=== PATIENT | male | born 1950 | race Caucasian/White ===

== ENCOUNTER 2017-10-11 10:13 | Outpatient (CLI) | payer OTHER, SELFPAY ==
[2017-10-11] VITALS (8 sets, daily range): BP systolic 108–125; BP diastolic 53–70; PULSE 15–48; RESP 10–16; O2SAT 98–100
--- NOTE | 2017-10-11 10:15 | DI.RAD.S_ITS ---
PROCEDURE: PAIN L/S MED/LAT N RFA BILAT INDICATIONS: LUMOSACRAL REGION SPONDYLOSIS FINDINGS: Fluoroscopic spot filming was performed to verify placement of spinal needles at the right L4, L5 and S1 level(s), as labeled on the films. Appropriate location(s) of the needle tip(s) was confirmed by injection of iodinated contrast. IMPRESSION: Successful needle tip localization for right L4, L5 and S1 rhizotomy. Dictated by: Chin Mcgarry M.D. on 10/11/2017 at 13:45 Approved by: Chin Mcgarry M.D. on 10/11/2017 at 13:45
[2017-10-11] MEDS: BUPIVACAINE 0.5% (PF) 30 ML VIAL 5 ML INJ (11:45)
--- NOTE | 2017-10-11 11:48 | P.PCN_ITS ---
Procedures Date/Time Date of procedure: 10/11/17 Time of procedure: 11:45 General Procedure description: PREOP DIAGNOSIS 1. RECALCITRANT FACET ARTHROPATHY, POST OP DIAGNOSIS 1. RECALCITRANT FACET ARTHROPATHY, PROCEDURES 1. RIGHT L4 AND L5 MEDIAL BRANCH RADIOFREQUENCY NEUROTOMY AND RIGHT S1 DORSAL RAMUS BRANCH RADIOFREQUENCY NEUROTOMY, SURGEON: Caleb Breen DO INDICATION: Austin is referred by Dr. Barnes for treatment of facet arthropathy. DESCRIPTION OF PROCEDURE Right L4 and L5 medial branch radiofrequency neurotomy and right S1 dorsal ramus branch radiofrequency neurotomy under fluoroscopy with conscious sedation. The patient is well known to this clinic having undergone previous facet injections with good but temporary relief. The patient has experienced appropriate, concordant relief with previous facet and median branch blocks but the patient's pain has been recalcitrant to further conservative measures. Therefore, based upon the patient's relief and persistent symptoms, the patient is considered an appropriate candidate for facet rhizotomy. All of the patient' s questions regarding the risks versus benefits of the procedure, including, but not limited to, bleeding, infection, temporary as well as lasting nerve injury, paralysis, stroke, and , as well treatment alternatives were answered to satisfaction. After obtaining informed consent, denial of pertinent drug allergies, as well as being made aware of the potential risks of bleeding, infection, spinal cord trauma, paralysis, temporary and permanent nerve damage, seizure, stroke, and possible , the patient was brought to the fluoroscopy suite and positioned prone on the fluoroscopy table. The lumbar region was prepped with Betadine and covered with a fenestrated drape in the usual sterile fashion. Appropriate monitors applied including pulse oximeter, pulse, and blood pressure for regular monitoring throughout the procedure. IV sedation was accomplished with 5mg of Versed and 50mcg titrated to patient comfort during the course of the procedure while the patient remained responsive to all verbal commands. After local infiltration using 1% lidocaine, under fluoroscopic guidance, a 10- cm RF insulated needle with a 10-mm active tip was positioned parallel to the junction of the right sacral ala and the superior articulating process where the S1 dorsal ramus resides. Needle placement was confirmed with sensory stimulation at 50 Hz, with motor stimulation of .5v on the right which produced local stimulation without radicular component. The stimulation was then increased to 1.5v with, once again, only local multifidus stimulation without radicular component. This was then followed by two discreet lesions performed at 80 degrees Celsius for 90 seconds each. The needle was then removed and the identical procedure was performed along the length of the right L5 medial branch with motor stimulation at .7v on the right. The identical procedure was once again performed along the length of the right L4 medial branch with motor stimulation of .5v on the right. The patient was then transferred to the recovery area where they were observed for an appropriate period of time after the injection. The patient reported a VAS score of 9 prior to the procedure and a post-procedure VAS of 0. Total Fluoroscopy Time: 31 seconds Total Conscious Sedation Time: 45min POST OP INSTRUCTIONS The patient was provided a Pain Log to continue to record the patient's response to the target-specific procedure prior to the patient's follow-up visit with the referring physician. Additionally, specific post-injection care instructions and a contact number to our office were provided if concerns arise regarding possible complications associated with the procedure are suspected. Caleb Breen DO Complications: none
[2017-10-11] MEDS: MIDAZOLAM 5 MG/5 ML VIAL IV (12:10)
== END 2017-10-11 17:20 | disposition home or self-care (01) ==
PROVIDERS: PCP Family Medicine; Visit Provider Physical Medicine & Rehabilitation
DX: M47.817 Spondylosis without myelopathy or radiculopathy, lumbosacral region (principal); M46.96 Unspecified inflammatory spondylopathy, lumbar region
CPT/HCPCS: 64635; J2250

== ENCOUNTER 2018-01-06 09:09 | Day surgery (SDC) | payer OTHER, SELFPAY ==
--- NOTE | 2018-01-06 | PATH_ITS ---
[facility] Accession Number: [id number] . 01 Material submitted: . RECTUM NEURONIS . 02 Diagnosis: Polyp From Rectum: Traditional serrated adenoma, apparenly excised in the plane of section (see comment). . . . COMMENT: This is a so-called advanced adenoma and although it appears to be totally excised within these sections, shortened surveillance interval is recommended. Case reviewed by Dr. Ramon Trevino who agrees with the diagnosis. MRV/01/09/2018 . 02 Electronically signed: . Guilherme Randall MD, Pathologist NPI- [id number] . 01 Gross description: . Received one formalin-filled container, labeled with the patient's name and labeled rectum neuronis, are two 0.4 to 0.6 cm portions of tissue. The smallest piece is entirely submitted. The largest piece is trisected and entirely submitted in the same cassette. (DC:mlo [id number]) /OZO . 02 Pathologist provided ICD-10: D12.8 . 02 CPT . 018045 Performed at: 01 [facility] [address] [place] [address], [place], [place] [id number] MD Christopher Mccullough MD Phone: [phone] Performed at: 02 [facility] [address] [place], [place] [id number] MD Fidel Hernandez MD Phone: [phone]
[2018-01-06 09:46] VITALS: BP 130/69; PULSE 50; RESP 15; TEMP 35.9; O2SAT 99; BMI 20.7
[2018-01-06] MEDS: SODIUM CHLORIDE 0.9% 1,000 ML 200 ML IV (10:15)
--- NOTE | 2018-01-06 10:58 | PM.HP.1 ---
History of Present Illness Date Patient Seen: 01/06/18 Time Patient Seen: 10:58 Chief complaint: egd colonoscopy [id number] Narrative: The patient is a gentleman here for an EGD and colonoscopy. Father had cancers polyps and he was advised to have repeat exam at this time by his prior examiner. He has chronic reflux in the see will have the EGD Patient History Medical History Chronic anticoagulation (Chronic) Facet arthritis, degenerative, L5-S1 level, lumbosacral spine (Chronic) Gastroesophageal reflux disease (Chronic) Sleep apnea (Chronic) Afib (Resolved) History of cardioversion (Resolved) Family & Social History Social History: household members spouse Tobacco & Substance use: Smoking Status Never smoker Meds Home Medications Medication Instructions Recorded Confirmed Type apixaban 5 mg tablet 5 mg PO BID 10/07/17 11/29/17 History betaxolol 0.25 % eye OPHTHALMIC (EYE) ml 10/07/17 11/29/17 History drops,suspension dexlansoprazole 60 mg 60 mg PO DAILY 10/07/17 11/29/17 History capsule,biphase delayed release diltiazem CD 120 mg 120 mg PO DAILY 10/07/17 11/29/17 History capsule,extended release 24 hr flecainide 100 mg tablet 100 mg PO Q12H 10/07/17 11/29/17 History gabapentin 300 mg capsule 300 mg PO TID 10/07/17 11/29/17 History latanoprost 0.005 % eye drops OPHTHALMIC (EYE) ml 10/07/17 10/07/17 History metoclopramide 10 mg tablet 10 mg PO BID tab 10/07/17 11/29/17 History ranitidine 150 mg tablet 300 mg PO BEDTIME 10/07/17 11/29/17 History tamsulosin 0.4 mg PO DAILY 01/05/18 01/05/18 History Allergies Allergy/AdvReac Type Severity Reaction Status Date / Time Sulfa (Sulfonamide Allergy Verified 11/29/17 14:16 Antibiotics) Review of Systems Review of Systems All systems reviewed & are unremarkable except as noted in HPI and below Exam Vital Signs (past 8 hours): - 01/06/18 09:46 Temperature 96.6 F L Pulse Rate 50 L Respiratory Rate 15 Blood Pressure 130/69 Pulse Oximetry 99 Oxygen Delivery Method Room Air Narrative Exam Narrative: Operative no apparent distress. Eyes are nonicteric. Lungs are clear to auscultation. Heart fairly regular rate and rhythm without murmur gallop despite his history of AFib. Abdomen is scaphoid soft nontender without mass. Assessment & Plan Plan: Assessment/Plan Narrative: Patient doing well. Will proceed to EGD and colonoscopy. I have discussed the risks of bleeding, perforation which necessitate a major operation, failure to find removal lesions of the potential tattoo with him. He appears to understand wishes to proceed.
--- NOTE | 2018-01-06 11:00 | PM.PREOP ---
Pre-operative Note Interval Note Pre-op Check: Yes History & Physical exam performed today by Physician Changes: No ASA Class (for procedural sedation): II
[2018-01-06] MEDS: LIDOCAINE 4% SOLN 50 ML 20 ML TOP (11:11)
[2018-01-06] MEDS: TETRACAINE/BENZOCAINE/BUTAMBEN (CETACAINE) BOTTLE 1 SPRAY TOP (11:12)
[2018-01-06] MEDS: fentaNYL 250 MCG/5 ML INJ IV (11:13)
[2018-01-06] MEDS: MIDAZOLAM 5 MG/5 ML VIAL IV (11:14)
[2018-01-06 11:49] VITALS: BP 119/67; PULSE 56; RESP 13; TEMP 36; O2SAT 97
--- NOTE | 2018-01-06 11:50 | P.OP.ENDO_ITS ---
Operative Date/Time/Diagnoses Date of procedure: 01/06/18 Time of procedure: 11:45 Pre-op diagnosis: Screening examination. History of gastroesophageal reflux disease Post-op diagnosis: same (Polyp just inside the anal verge which was snared. Normal upper exam.) Procedure & Clinicians Study performed: EGD. Colonoscopy with hot snare polypectomy Same procedure as scheduled: Yes Indications: Family history of colon cancer. Long history gastroesophageal reflux disease. Surgeon: Alex Jung Procedure Notes SCOAP/Timeout: Performed Procedure in detail: The patient had topical anesthetic applied to oropharynx. She was placed in left lateral decubitus position and underwent IV sedation directed by the surgeon consisting of fentanyl and Versed. A bite block was inserted and the scope was advanced through it into the esophagus. The esophagus was unremarkable. GE junction was noted at 50 cm from the incisors. His esophagus was unusually long.. The stomach insufflated well. There were no lesions seen in the body, antrum or at the incisura. The pyloric channel was [ patent]. The duodenum was unremarkable to the 4th part. The papilla was well- seated and was normal in appearance. The scope was brought back into the stomach and retroflexed. The proximal stomach[normal. There was no evidence of a hiatal hernia.]. The scope was straightened and brought out through the esophagus again. No lesions were seen. The scope was removed and the patient tolerated the procedure well. The patient was repositioned. The patient was placed in the left lateral decubitus position and underwent IV sedation directed by the surgeon consisting of fentanyl and Versed. Digital exam was[remarkable for decreased sphincter tone but no palpable masses. The prostate is flat a normal in size. No masses felt on the prostate.]. The scope was inserted and advanced through the rectum into the sigmoid, descending, transverse, and ascending colon.[No lesions were seen. I did have to apply pressure and insert a stiffener in order to reach the cecum]. The cecum was reached identified by the ileocecal valve and the appendiceal opening. The ileocecal valve was successfully cannulated. The terminal ileum was normal in appearance. The scope was gradually brought out. No polyps were found until I reached the rectum. On retroflexed view there was an obvious fairly large probably just over a cm polypoid lesion. I snared it with a hot snare in 2 pieces and it appeared to be completely removed. The scope was removed and the patient tolerated the procedure well Scope withdrawal time: 12 min Sedation minutes: 39 Findings: polyp (Rectum near anal verge) and other findings (Normal upper endoscopy) Specimen(s): other (Polyp) Complications: none Recommendations: Other recommendation (Flexible sigmoidoscopy in 6 months to evaluate the region of the rectum. Full colonoscopy in 3 years.) Follow up: as needed Disposition: PACU
[2018-01-06 11:56] VITALS: BP 116/61; PULSE 52; RESP 9; O2SAT 97
[2018-01-06 11:59] VITALS: BP 105/59; PULSE 56; RESP 11; O2SAT 96
[2018-01-06 12:31] VITALS: BP 100/60; PULSE 46; RESP 16; TEMP 36.4; O2SAT 99
== END 2018-01-06 12:45 | disposition home or self-care (01) ==
PROVIDERS: PCP Family Medicine; Referring Provider Family Medicine; Visit Provider Specialist
PROC: 0DJ08ZZ Inspection of Upper Intestinal Tract, Via Natural or Artificial Opening Endoscopic (ICD-10-PCS; CPT 43235; principal; 2018-01-06 10:45)
PROC: 0DJD8ZZ Inspection of Lower Intestinal Tract, Via Natural or Artificial Opening Endoscopic (ICD-10-PCS; CPT 45378; 2018-01-06 10:45)
DX: Z12.11 Encounter for screening for malignant neoplasm of colon (principal); K21.9 Gastro-esophageal reflux disease without esophagitis; Z80.0 Family history of malignant neoplasm of digestive organs; D12.8 Benign neoplasm of rectum; Z79.01 Long term (current) use of anticoagulants; I48.91 Unspecified atrial fibrillation; G47.33 Obstructive sleep apnea (adult) (pediatric)
CPT/HCPCS: 45385; 43235; 99152; 99153; J2250; J3010

== ENCOUNTER → 2018-03-20 13:57 | Outpatient (CLI) | payer OTHER, SELFPAY ==
--- NOTE | 2018-03-20 | DI.MRI.S_ITS ---
PROCEDURE: MR PELVIS WO CON INDICATIONS: SCIATICA OF RIGHT SIDE TECHNIQUE: Noncontrast axial and coronal T1 spin echo and STIR through the lumbosacral plexus region. Optional contrast may be given, followed by axial and coronal T1 spin echo with fat saturation through the sacral plexus. COMPARISON: [facility], MR, MR LUMBAR SPINE WO CON, 03/20/2018, 14:18. FINDINGS: Image quality: Excellent. Lumbosacral plexus: Superior to the piriformis muscles, the pre-plexal structures appear normal, including the lumbosacral trunk and S1 root. Just anterior to the piriformis muscles, the sacral plexus proper demonstrates normal morphology (lumbosacral trunk, S1 to S3 nerve roots). Inferior to the piriformis muscles, the sciatic nerves appear normal. Soft tissues: The piriformis muscles appear symmetric in size. No presacral masses. Rectum appears normal in caliber and wall thickness. No pathologic free pelvic fluid. No visualized adenopathy by size criteria. There is minimal bilaterally symmetric appearing hip abductor insertional tendinopathy. There is mild T2 hyperintensity within the right inferior paraspinal musculature image 15 series 6. Bones: Marrow is normal in overall signal. IMPRESSION: Grossly unremarkable examination as above. Minimal edema in the inferior most right paraspinal musculature. No asymmetric muscle atrophy. Dictated by: Andre Silva M.D. on 03/20/2018 at 16:49 Approved by: Andre Silva M.D. on 03/20/2018 at 16:55
--- NOTE | 2018-03-20 | DI.MRI.S_ITS ---
PROCEDURE: MR LUMBAR SPINE WO CON INDICATIONS: LOW BACK PAIN TECHNIQUE: Noncontrast sagittal T1 spin echo and T2 fast echo, sagittal STIR, axial T1 and T2 fast spin echo through the lumbar spine. In cases with scoliosis, additional coronal T2 fast spin echo may be performed. COMPARISON: [facility], MR, L-SPINE WITHOUT CONTRAST, 03/21/2017, 14:15. FINDINGS: Image quality: Excellent. Alignment and Curvature: There is normal bony alignment. Bone Marrow: Marrow is of normal overall signal. No acute vertebral body compression fractures. Spinal Cord: Conus medullaris terminates at the T12-L1 level. Visualized cord demonstrates normal signal and size. Paraspinous Soft Tissues: No paravertebral masses. Bilateral small parapelvic cysts as before. Partially visualized prolapse is seen at the level of S2. L1-L2: Normal appearance. L2-L3: Normal appearance. L3-L4: Mild partial effacement of the lateral recesses, however this appears symmetric. No such canal stenosis. Bilateral facet arthropathy. No foraminal narrowing.. L4-L5: Bilateral symmetric effacement of the lateral recesses. Facet arthropathy is seen. There is mild broad-based posterior disc bulge. No foraminal stenoses L5-S1: No canal stenosis. Bilateral facet arthropathy. Minimal partial effacement of the lateral recesses although appears symmetric. IMPRESSION: No definite interval change since 03/21/17. Diffuse bilateral subarticular narrowing, most pronounced at L4-L5 (symmetric), however probably unchanged since 03/21/17. No canal or foraminal stenosis. Dictated by: Andre Silva M.D. on 03/20/2018 at 16:40 Approved by: Andre Silva M.D. on 03/20/2018 at 16:47
== END ==
PROVIDERS: PCP Physical Medicine & Rehabilitation; Visit Provider Family Medicine
DX: M54.5 Low back pain (principal); M51.16 Intervertebral disc disorders with radiculopathy, lumbar region; M47.26 Other spondylosis with radiculopathy, lumbar region
CPT/HCPCS: 72148; 72195

== ENCOUNTER 2018-08-11 10:41 | Day surgery (SDC) | payer OTHER, SELFPAY ==
[2018-08-11] VITALS (7 sets, daily range): BP systolic 104–131; BP diastolic 54–68; PULSE 45–50; RESP 12–16; TEMP 36–36.6; O2SAT 95–100; BMI 21.0
--- NOTE | 2018-08-11 | PATH_ITS ---
[facility] Accession Number: [id number] . 01 Material submitted: . anus - BIOPSY OF ANAL VERGE . 01 Clinical history: . BIOPSY OF ANAL VERGE X2 . 02 Diagnosis: Anal Verge, Biopsy: Squamous mucosa with no diagnostic abnormality. Negative for active inflammation, dysplasia or malignancy. V/08/14/2018 . 02 Electronically signed: . Ramon Trevino MD, PhD, Pathologist NPI- [id number] . 01 Gross description: . BIOPSY OF ANAL VERGE: Received in formalin 3 fragment(s) of felipe, soft tissue measuring 0.1 x 0.1 x 0.1 cm to 0.2 x 0.1 x 0.1 cm which is entirely submitted and submitted entirely in 1 cassette(s) /DMC /DMC . 02 Pathologist provided ICD-10: R19.4 . 02 CPT . 842369 Performed at: 01 [facility] [address] [facility], [place], [place] [id number] MD Christopher Mccullough MD Phone: [phone] Performed at: 02 [facility] [address] [place], [place] [id number] MD Michelle Godoy MD Phone: [phone]
--- NOTE | 2018-08-11 11:25 | PM.HP.1 ---
History of Present Illness Date Patient Seen: 08/11/18 Time Patient Seen: 11:25 Chief complaint: [id number] Narrative: Patient is a gentleman who had a serrated adenoma removed at his anal verge. He is brought back to make sure there has been complete removal and no regrowth of any lesion in that spot. Patient History Medical History Chronic anticoagulation (Chronic) Facet arthritis, degenerative, L5-S1 level, lumbosacral spine (Chronic) Gastroesophageal reflux disease (Chronic) Sleep apnea (Chronic) Afib (Resolved) History of cardioversion (Resolved) Family History Mother Gallstones Cancer Father Diabetes mellitus Cancer Social History marital status: household members: spouse occupational status: employed Smoking Status: Never smoker Family & Social History Family History Mother Gallstones Cancer Father Diabetes mellitus Cancer Social History: household members spouse Tobacco & Substance use: Smoking Status Never smoker Meds Home Medications Medication Instructions Recorded Confirmed Type betaxolol 0.25 % eye 0.25 drp/day EYE-RIGHT DAILY ml 10/07/17 08/11/18 History drops,suspension diltiazem CD 120 mg 120 mg PO DAILY 10/07/17 08/11/18 History capsule,extended release 24 hr flecainide 100 mg tablet 100 mg PO Q12H 10/07/17 08/11/18 History latanoprost 0.005 % eye drops 0.005 drp OPHTHALMIC (EYE) DAILY 10/07/17 08/11/18 History ml ranitidine 150 mg tablet 300 mg PO BEDTIME 10/07/17 08/11/18 History tamsulosin 0.4 mg PO DAILY 01/05/18 08/11/18 History Allergies Allergy/AdvReac Type Severity Reaction Status Date / Time Sulfa (Sulfonamide Allergy Verified 08/11/18 11:25 Antibiotics) Review of Systems Review of Systems All systems reviewed & are unremarkable except as noted in HPI and below Exam Vital Signs (past 8 hours): - 08/11/18 10:59 Temperature 97.6 F Pulse Rate 45 L Respiratory Rate 16 Blood Pressure 131/67 Pulse Oximetry 100 Oxygen Delivery Method Room Air Narrative Exam Narrative: Operative no apparent distress. Lungs are clear. Heart regular rate and rhythm without murmur gallop. Abdomen is soft nontender without mass. Alert oriented x3. Assessment & Plan Assessment & Plan narrative: Patient for a flex sig to ensure completely removal and no regrowth of the lesion at the anal verge. I have discussed the procedure with him. Risks of bleeding perforation discuss. He appears to understand wishes to proceed.
[2018-08-11] MEDS: SODIUM CHLORIDE 0.9% 1,000 ML 200 ML IV (11:33)
--- NOTE | 2018-08-11 11:35 | PM.PREOP ---
Pre-operative Note Interval Note History & Physical reviewed/Exam performed by Physician: Yes Changes to H&P: No ASA Class (for procedural sedation): II
[2018-08-11] MEDS: fentaNYL 250 MCG/5 ML INJ IV (11:42)
[2018-08-11] MEDS: MIDAZOLAM 5 MG/5 ML VIAL IV (11:43)
--- NOTE | 2018-08-11 11:46 | P.OP.ENDO_ITS ---
Operative Date/Time/Diagnoses Date of procedure: 08/11/18 Time of procedure: 11:42 Pre-op diagnosis: History of serrated adenoma at the anus Post-op diagnosis: same Procedure & Clinicians Study performed: Flex sig with cold biopsy Same procedure as scheduled: Yes Indications: Serrated adenoma at the anus. Scoping performed to ensure no regr owth and complete removal. Surgeon: Alex Jung Procedure Notes SCOAP/Timeout: Performed Procedure in detail: Patient is placed in left lateral decubitus position lightly sedated. Digital exam was unremarkable except his prostate is enlarged. Scope was inserted very slowly initially so I could get a good look at his anal verge looking forward. No lesions were seen. The scope was advanced to 20 cm and then brought back into the rectum and retroflexed. On retroflexed view there was 1 tiny area that could have represented up polyps which I biopsied and removed. There was also 1 irregular scar that I biopsied. Other scarring was seen on hemorrhoids but these did not appear to be neoplastic. The scope was then removed and the patient tolerated the procedure well. Scope withdrawal time: Not applicable Sedation minutes: 7 Findings: other findings (Scarring of the anus. Enlarged prostate.) Specimen(s): other (Biopsy the anal verge sent.) Complications: none Recommendations: Colonscopy in 3 years Plan for aftercare: Follow-up by phone/letter Disposition: PACU
--- NOTE | 2018-08-11 13:38 | SUR.PHASEII ---
late entry: stable phase 2 dressed when ready and left in stable condition.
== END 2018-08-11 12:55 | disposition home or self-care (01) ==
PROVIDERS: PCP Family Medicine; Visit Provider Specialist
PROC: 0DJD8ZZ Inspection of Lower Intestinal Tract, Via Natural or Artificial Opening Endoscopic (ICD-10-PCS; CPT 45378; principal; 2018-08-11 11:45)
DX: Z86.010 Personal history of colon polyps (principal); N40.0 Benign prostatic hyperplasia without lower urinary tract symptoms; Z79.01 Long term (current) use of anticoagulants; G47.33 Obstructive sleep apnea (adult) (pediatric)
CPT/HCPCS: 45380; 99152; J2250; J3010

== ENCOUNTER 2019-02-13 11:51 | Outpatient (CLI) | payer OTHER, SELFPAY ==
--- NOTE | 2019-02-13 11:52 | DI.RAD.S_ITS ---
PROCEDURE: PAIN L INTERLAMINAR/CAUDAL INJ INDICATIONS: SPONDYLOSIS FINDINGS: Fluoroscopic spot filming was performed to verify placement of spinal needles at the L5-S1 left-sided interlaminar notch level(s), as labeled on the films. Appropriate location(s) of the needle tip(s) was confirmed by injection of iodinated contrast. IMPRESSION: Successful needle tip localization through the left L5-S1 interlaminar notch for epidural steroid injection. Dictated by: Chin Mcgarry M.D. on 02/13/2019 at 13:47 Approved by: Chin Mcgarry M.D. on 02/13/2019 at 13:48
[2019-02-13 12:05] VITALS: BP 132/70; PULSE 42; RESP 18; TEMP 36; O2SAT 99
[2019-02-13 12:35] VITALS: BP 141/72; PULSE 47; RESP 16; O2SAT 100
--- NOTE | 2019-02-13 12:36 | PC.NURSE ---
NO SEDATION MEDS GIVEN PER PT REQUEST
[2019-02-13 12:40] VITALS: BP 139/69; PULSE 51; RESP 16; O2SAT 100
[2019-02-13] MEDS: DEXAMETHASONE 10 MG/ML VIAL 20 MG INJ (12:43)
[2019-02-13] MEDS: BETAMETHASONE 30 MG/5 ML MDV 6 MG INJ (12:43)
[2019-02-13] MEDS: IOPAMIDOL 15 ML VIAL 3 ML INJ (12:43)
[2019-02-13] MEDS: BUPIVACAINE 0.5% (PF) VIAL 2 ML INJ (12:43)
--- NOTE | 2019-02-13 12:45 | PC.NURSE ---
NO SEDATION MEDS GIVEN. ASSISTING PT OFF TABLE AND TRANSPORTING TO POST PROC AREA IN STABLE CONDITION.
--- NOTE | 2019-02-13 12:50 | PM.PROC.1 ---
Procedures Date/Time Date of procedure: 02/13/19 Time of procedure: 12:50 General Procedure description: PROVIDER: Caleb Breen DO Operative Note PREOP DIAGNOSIS 1. HNP WITH RADICULAR FEATURES, 2. MULTILEVEL CENTRAL STENOSIS, POST OP DIAGNOSIS 1. HNP WITH RADICULAR FEATURES, 2. MULTILEVEL CENTRAL STENOSIS, PROCEDURES 1. FLUORSCOPICALLY GUIDED CONTRAST CONTROLLED INTERLAMINAR EPIDURAL STEROID INJECTION - L5/S1 PHYSICIAN: Caleb Breen DO INDICATIONS Austin is referred by Dr. Salinas for treatment of Bilateral Foraminal Stenosis L>R LE symptoms. FINDINGS Multilevel Central Spinal Stenosis with Nerve Root Compression DESCRIPTION OF PROCEDURE Fluoroscopically guided, contrast-controlled L5/S1 translaminar epidural steroid injection. Following review of allergy and review of potential side effects and complications, including, but not necessarily limited to, infection, allergic reaction, local tissue breakdown, temporary as well as permanent nerve injury, paralysis, stroke and possible , the patient indicated that the patient understood and agreed to proceed. An informed consent document was signed by the patient, witnessed by a nurse, and placed in the patient's chart. Additionally, other treatment options including modalities, medications, and physical therapy were reviewed with the patient. After review of previous anaesthesic history and IV conscious sedation the patient was deemed safe to proceed with todays procedure with IV conscious sedation as ASA class II designation. Safety time-out was performed to confirm patient ID, procedure to be performed and site of procedure. IV sedation was deemed unnecessary and thus not administered by the RN after DO order while the patient remained responsive to all verbal commands. In the prone position, following sterile prep and drape of the lumbar region, the L5/S1 translaminar space was identified fluoroscopically. The skin was anesthetized via a 25-gauge, 1.5-inch needle with 1% lidocaine solution. At this point, a 22-gauge short bevel spinal needle was atraumatically introduced and advanced under fluoroscopic guidance into the region of the L5/S1 translaminar space. Depth was confirmed on lateral view. Radiological data, including multiple fluoroscopic views of the lumbar spine, reveal a spinal needle at the L5/S1 translaminar space. Lateral views then show placement of the needle in the epidural space. Subsequent views show contrast material flowing superiorly and inferiorly in the epidural space. No vascular or intrathecal uptake is observed. At this point, using loss of resistance technique with saline and air, the epidural space was entered. This was confirmed following negative aspiration with injection of approximately 1.5 cc of Isovue 200, showing excellent epidural flow without vascular or intrathecal uptake. At this point, 1 cc of 1% lidocaine solution combined with 3cc or 20mg of dexamethasone and 6mg of betamethasone was injected without incident. The patent tolerated the procedure without signs of symptoms of complications prior to transfer to the recovery area for further monitoring. The patient was then transferred to the recovery area where they were observed for an appropriate period of time after the injection. The patient reported a VAS score of 6 prior to the procedure and a post-procedure VAS of 0. Total Fluoroscopy Time: 11.8 seconds Total Conscious Sedation Time: 24min POST OP INSTRUCTIONS The patient was provided a Pain Log to continue to record their response to the target-specific procedure prior to follow-up visit with their referring physician. Additionally, specific post-injection care instructions and a contact number to our office were provided if concerns arise regarding possible complications associated with the procedure are suspected. Caleb Breen DO
[2019-02-13 12:56] VITALS: BP 137/78; PULSE 55; RESP 16; O2SAT 100
== END 2019-02-13 13:08 | disposition home or self-care (01) ==
LOC: RAD 11:52
PROVIDERS: PCP Family Medicine; Visit Provider Physical Medicine & Rehabilitation
DX: M51.17 Intervertebral disc disorders with radiculopathy, lumbosacral region (principal); M48.07 Spinal stenosis, lumbosacral region
CPT/HCPCS: 62323; J0702; J1100; J2250; J3010

== ENCOUNTER 2019-07-17 10:24 | Outpatient (CLI) | payer OTHER, SELFPAY ==
--- NOTE | 2019-07-17 10:25 | DI.RAD.S_ITS ---
PROCEDURE: PAIN L INTERLAMINAR/CAUDAL INJ INDICATIONS: SPINAL STENOSIS FINDINGS: Fluoroscopic spot filming was performed to verify placement of spinal needles at the L5-S1 interlaminar level(s), as labeled on the films. Appropriate location(s) of the needle tip(s) was confirmed by injection of iodinated contrast. IMPRESSION: Successful paramedian interlaminar space L5-S1 needle tip localization for epidural steroid injection. Dictated by: Chin Mcgarry M.D. on 07/17/2019 at 12:37 Approved by: Chin Mcgarry M.D. on 07/17/2019 at 12:38
[2019-07-17 11:41] VITALS: BP 141/62; PULSE 52; RESP 16; O2SAT 99
[2019-07-17 11:46] VITALS: BP 141/62; PULSE 57; RESP 16; O2SAT 99
[2019-07-17 11:51] VITALS: BP 145/65; PULSE 57; RESP 16; O2SAT 99
[2019-07-17] MEDS: BETAMETHASONE 30 MG/5 ML MDV 6 MG INJ (11:51)
[2019-07-17] MEDS: DEXAMETHASONE 10 MG/ML VIAL 20 MG INJ (11:51)
[2019-07-17] MEDS: IOPAMIDOL 15 ML VIAL 3 ML INJ (11:51)
[2019-07-17] MEDS: BUPIVACAINE 0.25% (PF) VIAL 2 ML INJ (11:51)
--- NOTE | 2019-07-17 11:53 | PC.NURSE ---
NO SEDATION MEDS GIVEN DURING PROCEDURE. ASSISTING PT OFF TABLE AND TRANSPORTING TO POST PROC AREA IN STABLE CONDITION. PASSING RN CARE OF PT OFF TO JENNIFER COBB.
--- NOTE | 2019-07-17 11:58 | P.PCN_ITS ---
Procedures Date/Time Date of procedure: 07/17/19 Time of procedure: 11:58 General Procedure description: PROVIDER: Caleb Breen DO Operative Note PREOP DIAGNOSIS 1. HNP WITH RADICULAR FEATURES, 2. MULTILEVEL CENTRAL STENOSIS, POST OP DIAGNOSIS 1. HNP WITH RADICULAR FEATURES, 2. MULTILEVEL CENTRAL STENOSIS, PROCEDURES 1. FLUORSCOPICALLY GUIDED CONTRAST CONTROLLED INTERLAMINAR EPIDURAL STEROID INJECTION - L5/S1 PHYSICIAN: Caleb Breen DO INDICATIONS Austin is referred by Dr. Salinas for treatment of Bilateral Foraminal Stenosis L>R LE symptoms. FINDINGS Multilevel Central Spinal Stenosis with Nerve Root Compression DESCRIPTION OF PROCEDURE Fluoroscopically guided, contrast-controlled L5/S1 translaminar epidural steroid injection. Following review of allergy and review of potential side effects and complications, including, but not necessarily limited to, infection, allergic reaction, local tissue breakdown, temporary as well as permanent nerve injury, paralysis, stroke and possible , the patient indicated that the patient understood and agreed to proceed. An informed consent document was signed by the patient, witnessed by a nurse, and placed in the patient's chart. Additionally, other treatment options including modalities, medications, and physical therapy were reviewed with the patient. After review of previous anaesthesic history and IV conscious sedation the patient was deemed safe to proceed with todays procedure with IV conscious sedation as ASA class II designation. Safety time-out was performed to confirm patient ID, procedure to be performed and site of procedure. IV sedation was deemed unnecessary and thus not administered by the RN after DO order, titrated to patient comfort during the course of the procedure while the patient remained responsive to all verbal commands. In the prone position, following sterile prep and drape of the lumbar region, the L5/S1 translaminar space was identified fluoroscopically. The skin was anesthetized via a 25-gauge, 1.5-inch needle with 1% lidocaine solution. At this point, a 22-gauge short bevel spinal needle was atraumatically introduced and advanced under fluoroscopic guidance into the region of the L5/S1 translaminar space. Depth was confirmed on lateral view. Radiological data, including multiple fluoroscopic views of the lumbar spine, reveal a spinal needle at the L5/S1 translaminar space. Lateral views then show placement of the needle in the epidural space. Subsequent views show contrast material flowing superiorly and inferiorly in the epidural space. No vascular or intrathecal uptake is observed. At this point, using loss of resistance technique with saline and air, the epidural space was entered. This was confirmed following negative aspiration with injection of approximately 1.5 cc of Isovue 200, showing excellent epidural flow without vascular or intrathecal uptake. At this point, 1 cc of 1% lidocaine solution combined with 3cc or 20mg of dexamethasone and 6mg of betamethasone was injected without incident. The patent tolerated the procedure without signs of symptoms of complications prior to transfer to the recovery area for further monitoring. The patient was then transferred to the recovery area where they were observed for an appropriate period of time after the injection. The patient reported a VAS score of 6 prior to the procedure and a post-procedure VAS of 0. Total Fluoroscopy Time: 5seconds Total Conscious Sedation Time: 24min POST OP INSTRUCTIONS The patient was provided a Pain Log to continue to record their response to the target-specific procedure prior to follow-up visit with their referring physician. Additionally, specific post-injection care instructions and a contact number to our office were provided if concerns arise regarding possible complica tions associated with the procedure are suspected. Caleb Breen DO Complications: none
--- NOTE | 2019-07-17 12:09 | PC.NURSE ---
Pt arrived returned to post proc room via . No medications were provided for procedure. Pt transferred from wc to chair without assistance. Resumed care and monitoring from JENNIFER Wallace
== END 2019-07-17 12:12 | disposition home or self-care (01) ==
LOC: RAD 10:25
PROVIDERS: PCP Family Medicine; Referring Provider Physical Medicine & Rehabilitation; Visit Provider Physical Medicine & Rehabilitation
DX: M51.17 Intervertebral disc disorders with radiculopathy, lumbosacral region (principal); M48.07 Spinal stenosis, lumbosacral region
CPT/HCPCS: 62323; J0702; J1100; J2250; J3010

== ENCOUNTER → 2020-08-06 11:54 | Outpatient (CLI) | payer OTHER, SELFPAY ==
[2020-08-06 23:34] LABS: BUN Creatinine Ratio 20.2 (6-22); Blood Urea Nitrogen 22 mg/dL (9-20); Calcium 9.4 mg/dL (8.4-10.2); Carbon Dioxide 32 mmol/L (22-32); Chloride 102 mmol/L (98-107); Estimated Glomerular Filt Rate > 60.0 mL/min (>60); Glucose 79 mg/dL (80-110); HEMOLYSIS 20 (0-50); Potassium 4.6 mmol/L (3.4-5.1); Sodium 140 mmol/L (137-145)
== END ==
PROVIDERS: PCP Family Medicine; Visit Provider Internal Medicine Cardiovascular Disease
DX: I48.91 Unspecified atrial fibrillation (principal)
CPT/HCPCS: 80048

== ENCOUNTER → 2020-08-20 13:45 | Outpatient (CLI) | payer OTHER, SELFPAY ==
[2020-08-20 20:23] LABS: COVID19 - ORCAS (NP or Nasal) Negative (Negative)
== END ==
PROVIDERS: PCP Family Medicine; Visit Provider Physician Assistant Medical
DX: Z20.822 Contact with and (suspected) exposure to COVID-19 (principal)
CPT/HCPCS: U0003

== ENCOUNTER → 2020-10-06 11:07 | Outpatient (CLI) | payer OTHER, SELFPAY ==
[2020-10-06 20:45] LABS: Add Manual Diff / Slide Review NO; Basophils Absolute Auto 0 /uL (0-100); Basophils Percent Auto 0.4 % (0-2); Eosinophils Absolute Auto 0 /uL (0-450); Eosinophils Percent Auto 0.8 % (2-4); Hematocrit 43.8 % (41-53); Hemoglobin 15.1 g/dL (13.5-17.5); Lymphocytes Absolute Auto 1300 /uL (1100-4500); Lymphocytes Percent Auto 21.1 % (25-40); Mean Corpuscular HGB Conc 34.5 % (30-36); Mean Corpuscular Hemoglobin 32.2 PG (26-34); Mean Corpuscular Volume 93.3 fL (80-100); Monocytes Absolute Auto 500 /uL (0-900); Monocytes Percent Auto 8.7 % (3-14); Neutrophils Absolute Auto 4300 /uL (1500-7000); Platelet Count 149 X10^3/uL (150-400); Red Blood Cell Count 4.69 X10^6/uL (4.5-5.9); Red Cell Distribution Width 13.4 % (11.6-14.8); White Blood Cell Count 6.3 X10^3/uL (4.5-11.0)
[2020-10-06 22:14] LABS: Alanine Aminotransferase 32 IU/L (<50); Albumin 4.3 g/dL (3.5-5.0); Albumin Globulin Ratio 1.9 (1.0-2.8); Alkaline Phosphatase 69 U/L (38-126); Aspartate Aminotransferase 30 IU/L (17-59); BUN Creatinine Ratio 19.1 (6-22); Bilirubin Total 0.8 mg/dL (0.2-1.3); Blood Urea Nitrogen 21 mg/dL (9-20); Calcium 9.4 mg/dL (8.4-10.2); Carbon Dioxide 28 mmol/L (22-32); Chloride 102 mmol/L (98-107); Cholesterol 162 mg/dL (140-199); Estimated Glomerular Filt Rate > 60.0 mL/min (>60); Globulin 2.3 g/dL (1.7-4.1); Glucose 97 mg/dL (80-110); HDL Cholesterol 56 mg/dL (40-60); HEMOLYSIS < 15 (0-50); LDL Cholesterol Calculated 91 mg/dL (<100); Potassium 4.5 mmol/L (3.4-5.1); Sodium 138 mmol/L (137-145); Total Protein 6.6 g/dL (6.3-8.2); Triglycerides 77 mg/dL (35-150)
[2020-10-06 22:42] LABS: Prostate Specific Antigen Scrn 0.902 ng/mL (0.1-4.0)
[2020-10-08 06:27] LABS: Cancer (Carbohydrate) Ag 19-9 15 U/mL (0-35)
== END ==
PROVIDERS: PCP Family Medicine; Visit Provider Family Medicine
DX: I48.92 Unspecified atrial flutter (principal); K21.9 Gastro-esophageal reflux disease without esophagitis; Z12.5 Encounter for screening for malignant neoplasm of prostate
CPT/HCPCS: 80053; 80061; 84443; 85025; 86301; G0103

== ENCOUNTER → 2020-12-30 10:56 | Outpatient (CLI) | payer OTHER, SELFPAY | PROVIDERS: PCP Family Medicine; Visit Provider Family Medicine | DX: Z00.00 Encounter for general adult medical examination without abnormal findings (principal) | CPT/HCPCS: 82306 ==

== ENCOUNTER → 2021-02-06 07:43 | Outpatient (CLI) | payer OTHER, SELFPAY ==
[2021-02-06 23:16] LABS: COVID19 - ORCAS (NP or Nasal) Negative (Negative)
== END ==
PROVIDERS: PCP Family Medicine; Visit Provider Family Medicine
DX: Z20.822 Contact with and (suspected) exposure to COVID-19 (principal)
CPT/HCPCS: U0003

== ENCOUNTER → 2021-05-05 10:50 | Outpatient (CLI) | payer OTHER, SELFPAY ==
[2021-05-05 19:19] LABS: Add Manual Diff / Slide Review NO; Basophils Absolute Auto 0 /uL (0-100); Basophils Percent Auto 0.4 % (0-2); Eosinophils Absolute Auto 200 /uL (0-450); Eosinophils Percent Auto 4.2 % (2-4); Hematocrit 42.6 % (41-53); Hemoglobin 14.9 g/dL (13.5-17.5); Lymphocytes Absolute Auto 1600 /uL (1100-4500); Lymphocytes Percent Auto 27.9 % (25-40); Mean Corpuscular Hemoglobin 32.2 PG (26-34); Mean Corpuscular Volume 91.8 fL (80-100); Monocytes Absolute Auto 500 /uL (0-900); Monocytes Percent Auto 9.3 % (3-14); Neutrophils Absolute Auto 3400 /uL (1500-7000); Neutrophils Percent Auto 58.2 % (50-75); Platelet Count 141 X10^3/uL (150-400); Red Blood Cell Count 4.64 X10^6/uL (4.5-5.9); White Blood Cell Count 5.8 X10^3/uL (4.5-11.0)
[2021-05-05 19:29] LABS: Alanine Aminotransferase 22 IU/L (<50); Albumin 4.1 g/dL (3.5-5.0); Albumin Globulin Ratio 1.9 (1.0-2.8); Alkaline Phosphatase 48 U/L (38-126); Aspartate Aminotransferase 29 IU/L (17-59); Bilirubin Total 0.8 mg/dL (0.2-1.3); Bilirubin Unconjugated 0.8 mg/dL (0.0-1.1); Globulin 2.2 g/dL (1.7-4.1); HEMOLYSIS 21 (0-50); Total Protein 6.3 g/dL (6.3-8.2)
[2021-05-05 19:43] LABS: Vitamin D 25 Hydroxy (D3) 40.4 ng/mL (30.0-100.0)
== END ==
PROVIDERS: Family Medicine; PCP Family Medicine; Visit Provider Podiatrist
DX: D35.1 Benign neoplasm of parathyroid gland (principal); L60.3 Nail dystrophy; R26.2 Difficulty in walking, not elsewhere classified; E55.9 Vitamin D deficiency, unspecified
CPT/HCPCS: 80076; 82306; 85025

== ENCOUNTER → 2021-08-31 09:29 | Outpatient (CLI) | payer OTHER, SELFPAY ==
[2021-08-31 19:16] LABS: Alanine Aminotransferase 29 IU/L (<50); Albumin 4.5 g/dL (3.5-5.0); Alkaline Phosphatase 55 U/L (38-126); Aspartate Aminotransferase 36 IU/L (17-59); BUN Creatinine Ratio 18.9 (6-22); Blood Urea Nitrogen 18 mg/dL (9-20); Calcium 8.9 mg/dL (8.4-10.2); Carbon Dioxide 29 mmol/L (22-32); Chloride 105 mmol/L (98-107); Estimated Glomerular Filt Rate > 60 mL/min (>60); Globulin 2.2 g/dL (1.7-4.1); Glucose 104 mg/dL (80-110); HEMOLYSIS < 15 (0-50); Potassium 4.2 mmol/L (3.4-5.1); Sodium 141 mmol/L (137-145); Total Protein 6.7 g/dL (6.3-8.2)
[2021-08-31 19:42] LABS: Prostate Specific Antigen Scrn 1.07 ng/mL (0.1-4.0)
== END ==
PROVIDERS: PCP Family Medicine; Visit Provider Family Medicine
DX: Z12.5 Encounter for screening for malignant neoplasm of prostate (principal); K21.9 Gastro-esophageal reflux disease without esophagitis
CPT/HCPCS: 80053; G0103

== ENCOUNTER → 2021-12-31 11:37 | Outpatient (CLI) | payer OTHER, SELFPAY ==
--- NOTE | 2021-12-31 11:38 | DI.MRI.S_ITS ---
PROCEDURE: MR LUMBAR SPINE WO CON INDICATIONS: BACK PAIN TECHNIQUE: Noncontrast sagittal T1 spin echo and T2 fast echo, sagittal STIR, and T2 fast spin echo through the lumbar spine. In cases with scoliosis, additional coronal T2 fast spin echo may be performed. COMPARISON: [facility], MR, L-SPINE WITHOUT CONTRAST, 03/21/2017, 14:15. [facility], MR, MR LUMBAR SPINE WO CON, 03/20/2018, 14:18. FINDINGS: Image quality: Excellent. Alignment and Curvature: There is normal bony alignment. Bone Marrow: Marrow is of normal overall signal. No acute vertebral body compression fractures. Spinal Cord: Conus medullaris terminates at the T12 level. Visualized cord demonstrates normal signal and size. Paraspinous Soft Tissues: No paravertebral masses. T12-L1: No significant disc bulge. The foramina and central canal are patent. L1-L2: No significant disc bulge. The foramina and central canal are patent. L2-L3: No significant disc bulge. The foramina and central canal are patent. L3-L4: Mild diffuse disc bulge. The foramina and central canal are patent. L4-L5: Mild diffuse disc bulge. The foramina and central canal are patent. L5-S1: The disc is desiccated consistent with mild degenerative change and an annular fissure posteriorly. No significant disc bulge. The foramina and central canal are patent. 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 IMPRESSION: 1. No acute abnormality or significant interval change. 2. Mild disc bulges at L3-4 and L4-5 with no protrusion or extrusion and no foraminal or central canal stenosis. Dictated by: Carl Mcneill M.D. on 12/31/2021 at 12:26 Approved by: Carl Mcneill M.D. on 12/31/2021 at 12:33
== END ==
PROVIDERS: PCP Family Medicine; Referring Provider Physical Medicine & Rehabilitation; Visit Provider Physical Medicine & Rehabilitation
DX: M47.817 Spondylosis without myelopathy or radiculopathy, lumbosacral region (principal); M46.96 Unspecified inflammatory spondylopathy, lumbar region; M48.07 Spinal stenosis, lumbosacral region; M51.36 Other intervertebral disc degeneration, lumbar region
CPT/HCPCS: 72148

== ENCOUNTER → 2022-03-23 14:01 | Outpatient (CLI) | payer OTHER, SELFPAY ==
[2022-03-23 18:54] LABS: Hematocrit 43.9 % (41-53); Hemoglobin 15.5 g/dL (13.5-17.5); Mean Corpuscular HGB Conc 35.3 % (30-36); Mean Corpuscular Hemoglobin 32.3 PG (26-34); Mean Corpuscular Volume 91.4 fL (80-100); Platelet Count 160 X10^3/uL (150-400); Red Cell Distribution Width 13.1 % (11.6-14.8); White Blood Cell Count 6.8 X10^3/uL (4.5-11.0)
[2022-03-23 18:55] LABS: Alanine Aminotransferase 28 IU/L (<50); Albumin 4.4 g/dL (3.5-5.0); Albumin Globulin Ratio 1.8 (1.0-2.8); Alkaline Phosphatase 65 U/L (38-126); Aspartate Aminotransferase 31 IU/L (17-59); Bilirubin Total 0.7 mg/dL (0.2-1.3); Bilirubin Unconjugated 0.8 mg/dL (0.0-1.1); Globulin 2.5 g/dL (1.7-4.1); HEMOLYSIS < 15 (0-50); Total Protein 6.9 g/dL (6.3-8.2)
== END ==
PROVIDERS: PCP Family Medicine; Visit Provider Podiatrist
DX: B35.1 Tinea unguium (principal)
CPT/HCPCS: 80076; 85027

== ENCOUNTER → 2022-09-06 12:08 | Outpatient (CLI) | payer OTHER, SELFPAY ==
--- NOTE | 2022-09-06 12:33 | DI.MRI.S_ITS ---
PROCEDURE: MR HIP LT WO CON INDICATIONS: left hip pain TECHNIQUE: Noncontrast coronal T1 spin echo and STIR through the bony pelvis. Coronal and axial T2 fast spin echo with fat saturation, sagittal T1 spin echo, and oblique axial T2 fast spin echo with fat saturation through the hip. COMPARISON: [facility] ([facility]), CR, XR HIP W PEL IF DONE LT 2V, 08/05/2022, 13:34. FINDINGS: Image quality: Excellent. Bones and joints: Mild periarticular osteophyte formation at the bilateral hip joints. Bone marrow of the pelvic ring and proximal femurs show normal signal throughout. No intraosseous lesions or fractures. No avascular necrosis of the femoral heads. The visualized lower lumbar spine appears normally aligned. Tendons and ligaments: The gluteus medius and minimus tendons appear intact, without associated muscle atrophy. The nearby proximal iliotibial band also appears intact. The iliopsoas tendon appears intact, without adjacent bursal fluid collections or evidence for impingement syndrome. The origin of the hamstring tendon is intact at the ischial tuberosity, as well as the associated sacrotuberous ligament. Moderate T2 signal elevation within the medial aspect of the proximal hamstring tendon. The straight and reflected heads of the rectus femoris muscle origin appear intact, as well as the conjoint tendon. The ligamentum teres appears intact where visualized. Labrum and cartilage: Amorphous high signal intensity within the left hip labrum. Cartilage surface of the femoral head appears of normal thickness. The alpha angle of the femur is within normal limits at less than 55 degrees. Soft tissues: Visualized muscles demonstrate normal bulk and internal signal. Quadratus femoris muscle demonstrates no internal edema to suggest ischiofemoral impingement. The proximal sciatic neurovascular bundle appears normal adjacent to the hamstring tendons. No free pelvic fluid. Bladder wall thickness is normal. Genitourinary structures and bowel loops appear normal where visualized. IMPRESSION: 1. 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 2. Left hamstring tendinopathy. Dictated by: Trinh Daugherty M.D. on 09/06/2022 at 13:37 Approved by: Trinh Daugherty M.D. on 09/06/2022 at 13:39
== END ==
PROVIDERS: PCP Family Medicine; Referring Provider Physical Medicine & Rehabilitation; Visit Provider Physical Medicine & Rehabilitation
DX: M16.12 Unilateral primary osteoarthritis, left hip (principal); S73.102A Unspecified sprain of left hip, initial encounter; M25.552 Pain in left hip
CPT/HCPCS: 73721

== ENCOUNTER → 2023-03-23 11:02 | Outpatient (CLI) | payer OTHER, SELFPAY ==
--- NOTE | 2023-03-23 11:03 | DI.US.S_ITS ---
PROCEDURE: US SCROTUM INDICATIONS: right inguinal and testicular pain s/p swimming. hx hernia TECHNIQUE: Real-time scanning was performed of the scrotum and testicles, with image documentation. Color and pulse Doppler interrogation was performed of both testicles. COMPARISON: None. FINDINGS: Right: Testicle is normal in size at 4.3 x 2.8 x 1.9 cm, and homogenous in echotexture. The epididymis is enlarged with a mass measuring 1.9 x 1.5 x 1.2 cm which has a smaller area measuring 0.6 x 0.9 cm within at that appears to be fluid. 2 x 2 x 1 millimeter simple cyst in the epididymal head. Overlying scrotal skin is normal in thickness. Left: Testicle is normal in size at 4.6 x 2.6 x 1.7 cm, and heterogenous in echotexture. Epididymis is normal in overall size and morphology. 3 x 5 x 4 millimeter simple cyst in the epididymal head. No hydrocele or varicoceles. Overlying scrotal skin is normal in thickness. Doppler: Color and pulse Doppler demonstrate normal and symmetric arterial flow in both testicles. IMPRESSION: 1. No evidence of testicular torsion. 2. Enlarged epididymis with increased vascularity and a mass measuring 1.9 x 1.5 x 1.2 cm with a central area of possible fluid measuring 0.6 x 0.9 cm. Findings are most consistent with an epididymitis with a small central abscess. Although a mass cannot be excluded. Recommend urology referral. Findings were discussed with Gege JARAMILLO. Dictated by: Carl Mcneill M.D. on 03/23/2023 at 12:13 Approved by: Carl Mcneill M.D. on 03/23/2023 at 12:25
== END ==
PROVIDERS: PCP Family Medicine; Referring Provider Physician Assistant; Visit Provider Physician Assistant
DX: N50.89 Other specified disorders of the male genital organs (principal); N50.811 Right testicular pain; R10.31 Right lower quadrant pain
CPT/HCPCS: 76870; 93975

== ENCOUNTER 2023-04-14 10:47 | Day surgery (SDC) | payer OTHER, SELFPAY ==
[2023-04-14 11:23] VITALS: BP 155/92; PULSE 56; RESP 16; TEMP 36.1; O2SAT 98; BMI 20.7
[2023-04-14] MEDS: LACTATED RINGERS 1,000 ML 42 ML IV (11:48)
--- NOTE | 2023-04-14 13:16 | PM.HP.1 ---
History of Present Illness History of Present Illness Date Patient Seen: 04/14/23 Time Patient Seen: 13:16 Chief complaint: SDC Narrative: Austin is a 72-year-old man who is here for colonoscopy. He thinks his last 1 was about 6 years ago and there may have been a polyp removed. 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 Tinea Shoulder pain (~2019) Chronic back pain (~1989) Nasal vestibulitis Obstructive sleep apnea (~2015) Foraminal stenosis of lumbosacral region History of cardioversion Chronic anticoagulation Gastroesophageal reflux disease Facet arthritis, degenerative, L5-S1 level, lumbosacral spine Afib (~2015) Surgical History Anesthesia S/P lateral meniscus repair of right knee (~2009) S/P ACL surgery Family History Mother Gallstones Cancer Father Diabetes mellitus Cancer Excessive protein intake Social History marital status: household members: spouse occupational status: employed other: [employer]. Smoking Status: Never smoker alcohol intake: never Type(s) of exercise: bicycling, regular exercise and swimming Meds Home Medications and Allergies Home Medications Medication Instructions Recorded Confirmed Type betaxolol 0.25 % eye 0.25 drp/day EYE-RIGHT DAILY 10/07/17 04/14/23 History drops,suspension (Betoptic S) latanoprost 0.005 % eye drops 0.005 drp ophthalmic (eye) DAILY 10/07/17 04/14/23 History Resmed Airsense 10 CPAP #1 ea 12/11/18 03/21/23 History acetaminophen 500 mg tablet 500 mg PO BID PRN Pain (Scale 12/11/18 04/14/23 History (Tylenol Extra Strength) Score 1-3) MASSAGE THERAPY #1 ea 08/05/20 03/21/23 Rx zolpidem 5 mg tablet (Ambien) 5 mg PO BEDTIME PRN sleep #60 tabs 09/22/20 04/14/23 Rx famotidine 20 mg tablet 20 mg PO DAILY 02/10/22 04/14/23 History tamsulosin 0.4 mg capsule 0.8 mg (2 x 0.4 mg) PO DAILY #180 02/16/22 04/14/23 Rx caps dexlansoprazole 30 mg 30 mg PO DAILY PRN gerd 09/01/22 04/14/23 History capsule,biphase delayed release (Dexilant) clotrimazole 1 % topical cream 1 applic topical BID #30 grams 11/11/22 04/14/23 Rx hydrocortisone 1 % topical cream 1 applic topical BID PRN 11/11/22 04/14/23 Rx (Proctocort) hemorrhoids #28.35 grams Allergies Allergy/AdvReac Type Severity Reaction Status Date / Time omeprazole Allergy Mild Rash Verified 04/14/23 11:29 Exam Vital Signs (past 8 hours): - 04/14/23 11:23 Temperature 97 F L Pulse Rate 56 L Respiratory Rate 16 Blood Pressure 155/92 H Pulse Oximetry 98 Oxygen Delivery Method Room Air Oxygen Delivery Method Room Air Const General: healthy appearing Assessment & Plan Assessment and plan (1) Colon cancer screening: Status: Acute Plan We reviewed the risks and benefits of colonoscopy for colon cancer screening and he would like to proceed.
--- NOTE | 2023-04-14 13:54 | PM.OP.COLON ---
Operative Date/Time/Diagnoses Date of procedure: 04/14/23 Time of procedure: 13:54 Pre-op diagnosis: Colon cancer screening Post-op diagnosis: same Procedure & Clinicians Study performed: Colonoscopy Surgeon: Austin Jaime Procedure Notes Procedure in detail: Surgeon: Austin Jaime MD Anesthesia: Constantine Alvarado CRNA Procedure: The patient was brought to the endoscopy suite, placed in left lateral decubitus position. The patient was connected to monitoring devices. A time-out was performed. Sedation was administered. Once the patient was adequately sedated, a digital rectal exam was performed and was normal. The scope was then inserted and advanced to the cecum where the appendiceal orifice was identified and photographed. The colon was rather tortuous and it was difficult to get to the cecum. The scope was then slowly withdrawn over greater than 6 minutes. The mucosa was thoroughly inspected. No abnormalities were found. The scope was retroflexed in the rectum. There were internal hemorrhoids. The scope was straightened and removed. The patient was awakened and brought to recovery. Scope withdrawal time: 7 minutes Sedation time: 26 minutes EBL: 2 mL Findings: Internal hemorrhoids Post-procedure Disposition: PACU
[2023-04-14 13:56] VITALS: BP 100/58; PULSE 56; RESP 20; TEMP 36.6; O2SAT 95
[2023-04-14 14:00] VITALS: BP 107/61; PULSE 53; RESP 21; O2SAT 95
[2023-04-14 14:05] VITALS: BP 112/69; PULSE 54; RESP 16; TEMP 36.6; O2SAT 96
== END 2023-04-14 14:40 | disposition home or self-care (01) ==
PROVIDERS: PCP Family Medicine; Referring Provider Surgery; Visit Provider Surgery
PROC: 0DJD8ZZ Inspection of Lower Intestinal Tract, Via Natural or Artificial Opening Endoscopic (ICD-10-PCS; CPT 45378; principal; 2023-04-14 12:45)
DX: Z12.11 Encounter for screening for malignant neoplasm of colon (principal); K64.8 Other hemorrhoids
CPT/HCPCS: 45378; J2704

== ENCOUNTER → 2023-05-16 10:01 | Outpatient (CLI) | payer OTHER, SELFPAY ==
[2023-05-16 19:20] LABS: Add Manual Diff / Slide Review NO; Basophils Absolute Auto 0 /uL (0-100); Basophils Percent Auto 0.7 % (0-2); Eosinophils Absolute Auto 300 /uL (0-450); Eosinophils Percent Auto 4.9 % (2-4); Hematocrit 44.1 % (41-53); Lymphocytes Absolute Auto 1800 /uL (1100-4500); Lymphocytes Percent Auto 33.1 % (25-40); Mean Corpuscular Hemoglobin 31.4 PG (26-34); Mean Corpuscular Volume 92.4 fL (80-100); Monocytes Absolute Auto 600 /uL (0-900); Monocytes Percent Auto 10.1 % (3-14); Neutrophils Absolute Auto 2800 /uL (1500-7000); Neutrophils Percent Auto 51.2 % (50-75); Platelet Count 149 X10^3/uL (150-400); Red Blood Cell Count 4.77 X10^6/uL (4.5-5.9); Red Cell Distribution Width 13.5 % (11.6-14.8); White Blood Cell Count 5.5 X10^3/uL (4.5-11.0)
[2023-05-16 19:26] LABS: Alanine Aminotransferase 26 IU/L (<50); Albumin 4.1 g/dL (3.5-5.0); Albumin Globulin Ratio 1.7 (1.0-2.8); Alkaline Phosphatase 51 U/L (38-126); Aspartate Aminotransferase 33 IU/L (17-59); BUN Creatinine Ratio 22.3 (6-22); Bilirubin Total 0.9 mg/dL (0.2-1.3); Blood Urea Nitrogen 23 mg/dL (9-20); Calcium 9.4 mg/dL (8.4-10.2); Carbon Dioxide 30 mmol/L (22-32); Chloride 101 mmol/L (98-107); Cholesterol 166 mg/dL (140-199); Estimated Glomerular Filt Rate > 60 mL/min (>60); Globulin 2.4 g/dL (1.7-4.1); Glucose 104 mg/dL (80-110); HDL Cholesterol 49 mg/dL (40-60); HEMOLYSIS < 15 (0-50); LDL Cholesterol Calculated 101 mg/dL (<100); Potassium 4.3 mmol/L (3.4-5.1); Sodium 136 mmol/L (137-145); Total Protein 6.5 g/dL (6.3-8.2); Triglycerides 79 mg/dL (35-150)
[2023-05-16 19:49] LABS: Prostate Specific Antigen Scrn 1.13 ng/mL (0.1-4.0)
== END ==
PROVIDERS: PCP Family Medicine; Visit Provider Family Medicine
DX: Z12.5 Encounter for screening for malignant neoplasm of prostate (principal); R03.0 Elevated blood-pressure reading, without diagnosis of hypertension; I48.92 Unspecified atrial flutter; E55.9 Vitamin D deficiency, unspecified; G47.33 Obstructive sleep apnea (adult) (pediatric)
CPT/HCPCS: 80053; 80061; 85025; G0103

== ENCOUNTER → 2023-06-13 10:32 | Outpatient (CLI) | payer MEDICARE, OTHER, SELFPAY ==
--- NOTE | 2023-06-13 10:34 | DI.US.S_ITS ---
PROCEDURE: US SCROTUM INDICATIONS: FOLLOW UP ABNORMAL SCROTAL ULTRASOUNDl 03/23/23. FINISHED ANTIBIOTICS 04/2023. TECHNIQUE: Real-time scanning was performed of the scrotum and testicles, with image documentation. Color and pulse Doppler interrogation was performed of both testicles. COMPARISON: [facility], , US SCROTUM, 03/23/2023, 11:09. FINDINGS: Right: Testicle is normal in size at 3.9 x 3 x 1.9 cm. There is tubular ectasia of the rete testis. There are punctate, mobile echogenic foci in the epididymis, likely mobile sperm, compatible sequela of prior vasectomy. Compared to testicular ultrasound dated March 23, 2023, there has been interval resolution of the epididymitis and associated phlegmon/abscess. Hyperdense focus in the epididymal tail measuring 0.4 cm, likely represent sequela of prior infection/inflammation. No hydrocele or varicoceles. Overlying scrotal skin is normal in thickness. Left: Testicle is normal in size at 3.9 x 2 cm. There is tubular ectasia of the rete testis. Epididymis is normal in overall size and morphology. No hydrocele or varicoceles. There is some sluggish flow in the scrotal vessels. There are punctate, mobile echogenic foci in the epididymis, likely mobile sperm, compatible sequela of prior vasectomy. Overlying scrotal skin is normal in thickness. Doppler: Color and pulse Doppler demonstrate normal and symmetric arterial flow in both testicles. IMPRESSION: 1. Compared to testicular ultrasound dated March 23, 2023, there has been interval resolution of right-sided epididymis and associated phlegmon/abscess. Hyperdense focus in the epididymal tail measuring 0.4 cm likely represents sequela of prior infection/inflammation. No new fluid collection. 2. 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 Echogenic, mobile foci in the bilateral epididymides, likely mobile sperm, compatible with sequela of prior vasectomy. Dictated by: Willi Peter M.D. on 06/13/2023 at 17:06 Approved by: Willi Peter M.D. on 06/13/2023 at 17:23
== END ==
PROVIDERS: PCP Family Medicine; Referring Provider Physician Assistant; Visit Provider Physician Assistant
DX: N50.89 Other specified disorders of the male genital organs (principal); R93.89 Abnormal findings on diagnostic imaging of other specified body structures; Z87.438 Personal history of other diseases of male genital organs; M53.3 Sacrococcygeal disorders, not elsewhere classified; M47.816 Spondylosis without myelopathy or radiculopathy, lumbar region; M75.42 Impingement syndrome of left shoulder; M48.07 Spinal stenosis, lumbosacral region; G47.33 Obstructive sleep apnea (adult) (pediatric)
CPT/HCPCS: 20552; 76870; 93975; 99214

== ENCOUNTER 2023-11-01 11:49 | Outpatient (CLI) | payer MEDICARE, OTHER, SELFPAY ==
[2023-11-01] VITALS (8 sets, daily range): BP systolic 144–186; BP diastolic 7–94; PULSE 51–58; RESP 16–25; TEMP 36.6; O2SAT 95–100
--- NOTE | 2023-11-01 13:00 | DI.RAD.S_ITS ---
PROCEDURE: PAIN SI JOINT INJECTION ROULA INDICATIONS: Bilateral sacroiliac joint injection COMPARISON: None. FINDINGS: Fluoroscopic spot filming was performed to verify placement of spinal needles at the bilateral SI joints level(s), as labeled on the films. Appropriate location(s) of the needle tip(s) was confirmed by injection of iodinated contrast. IMPRESSION: Intraoperative guidance provided. Dictated by: Maurisio Weber M.D. on 11/01/2023 at 17:18 Approved by: Maurisio Weber M.D. on 11/01/2023 at 17:20
--- NOTE | 2023-11-01 13:19 | PC.NURSE ---
Patient requested no sedation as he will be driving home. Patients spouse also having injection. Dr Breen aware, ok to proceed.
[2023-11-01] MEDS: BETAMETHASONE 30 MG/5 ML MDV 12 MG INJ (13:39)
[2023-11-01] MEDS: iopamidoL 15 ML VIAL 3 ML INJ (13:39)
[2023-11-01] MEDS: BUPIVACAINE 0.5% (PF) 10 ML VIAL 5 ML INJ (13:39)
--- NOTE | 2023-11-01 13:58 | PM.PROC.IR.1 ---
Date/Time/Diagnoses Date of procedure: 11/01/23 Time of procedure: 13:58 Pre-procedure diagnosis: Sacroiliac joint pain/DJD Post-procedure diagnosis: same Procedure Notes Procedure: Fluoroscopic guided contrast controlled bilateral sacroiliac joint injection Indications: [place] is referred by Dr. Acevedo for treatment of bilateral sacroiliac joint DJD Physician: Caleb Breen Total Fluoroscopy time (seconds): 19 Total sedation minutes: 0 Complications: none Procedure in detail & Post-procedure care: Description of procedure Fluoroscopic guided, contrast controlled bilateral sacroiliac joint injection Following review of allergies and review of potential side effects and complications, including, but not necessarily limited to, infection, allergic reaction, local tissue breakdown, temporary as well as permanent nerve injury, paralysis, stroke and possible , the patient indicated that they understood and agreed to proceed. An informed consent was signed by the patient, witnessed by a nurse, and placed in the patient's chart. Additionally, other treatment options including modalities, medications, and physical therapy were reviewed with the patient. After review of previous anaesthesic history and IV conscious sedation the patient was deemed safe to proceed with today?s procedure with IV conscious sedation as ASA class II designation. Safety time-out was performed to confirm patient ID, procedure to be performed and site of procedure. IV sedation was not administered by the RN after DO order, titrated to patient comfort during the course of the procedure while the patient remained responsive to all verbal commands In the prone position following sterile prep and drape of the pelvic region, the hyper lucency on in the inferior aspect of the sacroiliac joint was identified fluoroscopically the skin was anesthetized be a 25 gauge 1.5 inch needle with approximately 2cc of 1% lidocaine solution. At this point, a 22 gauge 3 in spinal needle was atraumatically introduced and advanced under fluoroscopic guidance into the inferior aspect of the right sacroiliac joint. Following negative aspiration, approximately 0.3cc of Isovue-300 was injected confirming intra-articular placement without vascular uptake. Radiographic data, including multiple fluoroscopic views of the pelvis, reveals a spinal needle in the sacroiliac joint hyper lucent zone. Subsequent view show flow contrast tear superiorly and inferiorly within the joint capsule without vascular intrathecal uptake. At this point a total of 1cc of 0.5% Marcaine was combined with 1cc of 6mg of betamethasone was injected without incident. Attention was then refocused the left sacroiliac joint where the procedure was replicated. The procedure tolerated the procedure well without signs or symptoms of complications prior to transfer to the recovery area continued monitoring without incident. The patient was then transferred to the recovery area with a bur observed for an appropriate time after the injection. The patient reverted a vas score of 7 prior to the procedure and post-procedure vas of 1. Postop instructions The patient was provided with a pain like to continue to record the patient's response to the target specific procedure prior to the patient's follow-up visit with the referring physician. Additionally, specific post injection care instructions and a contact number to our office were provided if concerns arise regarding the possible complications associated with procedure are suspected.
== END 2023-11-01 14:32 | disposition home or self-care (01) ==
PROVIDERS: PCP Family Medicine; Referring Provider Physical Medicine & Rehabilitation; Visit Provider Physical Medicine & Rehabilitation
DX: M53.3 Sacrococcygeal disorders, not elsewhere classified (principal); M46.1 Sacroiliitis, not elsewhere classified
CPT/HCPCS: 27096; 99152; J0702

== ENCOUNTER → 2024-02-15 09:57 | Outpatient (CLI) | payer MEDICARE, OTHER, SELFPAY ==
[2024-02-15 20:30] LABS: Add Manual Diff / Slide Review NO; Basophils Absolute Auto 0 /uL (0-100); Basophils Percent Auto 0.5 % (0-2); Eosinophils Absolute Auto 100 /uL (0-450); Hemoglobin 14.9 g/dL (13.5-17.5); Lymphocytes Absolute Auto 1600 /uL (1100-4500); Lymphocytes Percent Auto 27.6 % (25-40); Mean Corpuscular HGB Conc 34.6 % (30-36); Mean Corpuscular Hemoglobin 32.7 PG (26-34); Mean Corpuscular Volume 94.6 fL (80-100); Monocytes Absolute Auto 600 /uL (0-900); Monocytes Percent Auto 9.9 % (3-14); Neutrophils Absolute Auto 3600 /uL (1500-7000); Platelet Count 155 X10^3/uL (150-400); Red Blood Cell Count 4.54 X10^6/uL (4.5-5.9); Red Cell Distribution Width 12.9 % (11.6-14.8); White Blood Cell Count 5.9 X10^3/uL (4.5-11.0)
[2024-02-15 20:44] LABS: Alanine Aminotransferase 28 IU/L (<50); Albumin 4.3 g/dL (3.5-5.0); Alkaline Phosphatase 67 U/L (38-126); Aspartate Aminotransferase 30 IU/L (17-59); BUN Creatinine Ratio 20.2 (6-22); Bilirubin Total 0.9 mg/dL (0.2-1.3); Blood Urea Nitrogen 21 mg/dL (9-20); Calcium 9.3 mg/dL (8.4-10.2); Carbon Dioxide 28 mmol/L (22-32); Chloride 102 mmol/L (98-107); Cholesterol 176 mg/dL (140-199); Estimated Glomerular Filt Rate > 60 mL/min (>60); Globulin 2.1 g/dL (1.7-4.1); Glucose 105 mg/dL (80-110); HDL Cholesterol 56 mg/dL (40-60); HEMOLYSIS < 15 (0-50); LDL Cholesterol Calculated 104 mg/dL (<100); Potassium 4.5 mmol/L (3.4-5.1); Sodium 136 mmol/L (137-145); Total Protein 6.4 g/dL (6.3-8.2); Triglycerides 82 mg/dL (35-150)
[2024-02-15 21:06] LABS: Vitamin D 25 Hydroxy (D3) 33.7 ng/mL (30.0-100.0)
[2024-02-15 21:10] LABS: Prostate Specific Antigen Scrn 1.06 ng/mL (0.1-4.0)
[2024-02-16 15:53] LABS: Hep C Virus Ab w/Reflex Quant NEGATIVE s/c (NEGATIVE)
== END ==
PROVIDERS: PCP Family Medicine; Visit Provider Family Medicine
DX: E55.9 Vitamin D deficiency, unspecified (principal); Z13.6 Encounter for screening for cardiovascular disorders; Z12.5 Encounter for screening for malignant neoplasm of prostate; I48.92 Unspecified atrial flutter; G47.33 Obstructive sleep apnea (adult) (pediatric); K21.9 Gastro-esophageal reflux disease without esophagitis; Z12.11 Encounter for screening for malignant neoplasm of colon; Z11.59 Encounter for screening for other viral diseases; Z13.220 Encounter for screening for lipoid disorders
CPT/HCPCS: 80053; 80061; 82306; 85025; 86803; G0103